=== PATIENT | male | born 1980 | race Caucasian/White ===

== ENCOUNTER 2018-05-02 09:40 | Observation (INO) | payer SELFPAY ==
[~2018-05-02] VITALS: Ht 180.3 cm; Wt 68.0 kg
[2018-05-02 09:45] VITALS: BP 108/76; PULSE 89; RESP 17; TEMP 99.6; O2SAT 98
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
[2018-05-02] MEDS ORDERED: KETOROLAC TROMETHAMINE 30 MG/ML (IVP) VIAL IV PUSH ONE (11:15)
[2018-05-02 12:08] LABS: AUTOMATED NEUTROPHIL # 6.7 TH/MM3 (1.8-7.7); BASOPHIL % 0.4 % (0.0-2.0); EOSINOPHIL % 0.1 % (0.0-4.0); HEMATOCRIT 40.3 % (39.0-51.0); HEMOGLOBIN 13.6 GM/DL (13.0-17.0); LYMPH % 22.1 % (9.0-44.0); LYMPHOCYTE # 2.1 TH/MM3 (1.0-4.8); MEAN CELL VOLUME 90.1 FL (80.0-100.0); MEAN CORPUSCULAR HEMOGLOBIN 30.3 PG (27.0-34.0); MEAN CORPUSCULAR HGB CONC 33.6 % (32.0-36.0); MEAN PLATELET VOLUME 7.9 FL (7.0-11.0); MONO % 7.4 % (0.0-8.0); MONOCYTE # 0.7 TH/MM3 (0-0.9); PLATELET COUNT 217 TH/MM3 (150-450); RED BLOOD COUNT 4.48 MIL/MM3 (4.50-5.90); RED CELL DISTRIBUTION WIDTH 13.4 % (11.6-17.2); WHITE BLOOD COUNT 9.6 TH/MM3 (4.0-11.0)
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
[2018-05-02 12:22] LABS: CALCIUM 8.1 MG/DL (8.5-10.1); CREATININE 0.78 MG/DL (0.60-1.30)
[2018-05-02] MEDS ORDERED: PIPERACIL-TAZO 4.5 GM PREMIX 100 ML IV STA (13:27)
[2018-05-02] MEDS ORDERED: VANCOMYCIN INJ 1,000 MG in SODIUM CHLOR 0.9% 250 ML INJ 250 ML IV STA (13:27)
[2018-05-02] MEDS ORDERED: ACETAMINOPHEN 1000 MG/100 ML 100 ML IV ONE (13:45)
[2018-05-02 14:03] VITALS: BP 110/61; PULSE 55; RESP 14; O2SAT 99
--- NOTE | 2018-05-02 14:08 | PD ---
Data Data Last Documented VS Vital Signs Date Time Temp Pulse Resp B/P (MAP) Pulse Ox O2 Delivery O2 Flow Rate FiO2 05/02/18 14:03 55 14 110/61 (77) 99 Room Air 05/02/18 09:45 99.6 Orders Orders Us Arm Soft Tissue (05/02/18 ) Complete Blood Count With Diff (05/02/18 11:06) Basic Metabolic Panel (Bmp) (05/02/18 11:06) Iv Access Insert/Monitor (05/02/18 11:06) Ketorolac Inj (Toradol Inj) (05/02/18 11:15) Electrocardiogram (05/02/18 13:27) Blood Culture (05/02/18 13:27) Piperacil-Tazo 4.5 Gm Premix (Zosyn 4.5 (05/02/18 13:27) Vancomycin Inj (Vancomycin Inj) (05/02/18 13:27) Acetaminophen 1000 Mg/100 Ml (Ofirmev 10 (05/02/18 13:45) Labs Laboratory Tests Test 05/02/18 11:45 White Blood Count 9.6 TH/MM3 Red Blood Count 4.48 MIL/MM3 Hemoglobin 13.6 GM/DL Hematocrit 40.3 % Mean Corpuscular Volume 90.1 FL Mean Corpuscular Hemoglobin 30.3 PG Mean Corpuscular Hemoglobin Concent 33.6 % Red Cell Distribution Width 13.4 % Platelet Count 217 TH/MM3 Mean Platelet Volume 7.9 FL Neutrophils (%) (Auto) 70.0 % Lymphocytes (%) (Auto) 22.1 % Monocytes (%) (Auto) 7.4 % Eosinophils (%) (Auto) 0.1 % Basophils (%) (Auto) 0.4 % Neutrophils # (Auto) 6.7 TH/MM3 Lymphocytes # (Auto) 2.1 TH/MM3 Monocytes # (Auto) 0.7 TH/MM3 Eosinophils # (Auto) 0.0 TH/MM3 Basophils # (Auto) 0.0 TH/MM3 CBC Comment DIFF FINAL Differential Comment Blood Urea Nitrogen 7 MG/DL Creatinine 0.78 MG/DL Random Glucose 85 MG/DL Calcium Level 8.1 MG/DL Sodium Level 140 MEQ/L Potassium Level 3.9 MEQ/L Chloride Level 105 MEQ/L Carbon Dioxide Level 27.0 MEQ/L Anion Gap 8 MEQ/L Estimat Glomerular Filtration Rate 113 ML/MIN [facility] Supervised Visit with BINH: Yes Narrative Course I, Dr. Cornelius, have reviewed the advance practice practitioner's documentation and am in agreement, met with the patient face to face, made the diagnosis, and the medical decision making was done by me. *My assessment and Findings: Patient has a left shoulder abscess which is deep. He is an IV drug user. He is at risk for endocarditis and likely has bacteremia given this is not an injection site. He will be admitted for IV antibiotics and rule out endocarditis. Blood cultures will be sent Diagnosis Primary Impression: Abscess of left upper extremity Additional Impression: History of intravenous drug abuse Scripts No Active Prescriptions or Reported Meds Portillo Cornelius MD May 02, 2018 14:08
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
[2018-05-02] MEDS ORDERED: ACETAMINOPHEN 325 MG TAB PO PRN (16:00)
[2018-05-02] MEDS ORDERED: NALOXONE HCL 0.4 MG/ML AMP IV PUSH PRN (16:00)
[2018-05-02] MEDS ORDERED: SODIUM CHLORIDE 0.9% FLUSH 10 ML FLUSH IV FLUSH PRN (16:00)
[2018-05-02] MEDS ORDERED: Vancomycin Consult Pharmacy 1 EA OTHER SCH (16:00)
[2018-05-02] MEDS ORDERED: ENOXAPARIN SODIUM 40 MG/0.4 ML SYRINGE SQ SCH (18:00)
[2018-05-02 18:18] VITALS: BP 101/63; PULSE 75; RESP 18; TEMP 98.7; O2SAT 99
[2018-05-02] MEDS ORDERED: LORazepam 2 MG/ML VIAL IV PUSH PRN (19:15)
[2018-05-02] MEDS ORDERED: SODIUM CHLORIDE 0.9% FLUSH 10 ML FLUSH IV FLUSH SCH (21:00)
[2018-05-02] MEDS ORDERED: VANCOMYCIN INJ 750 MG in SODIUM CHLOR 0.9% 250 ML INJ 250 ML IV SCH (23:00)
[2018-05-03] MEDS ORDERED: VANCOMYCIN INJ 1,250 MG in SODIUM CHLOR 0.9% 250 ML INJ 250 ML IV SCH (01:00)
[2018-05-03] MEDS ORDERED: PHARMACY ORDERED LAB ONE (14:45)
--- NOTE | 2018-05-03 15:26 | EKG ---
Date Performed: 05/02/2018 Time Performed: 14:03:55 PTAGE: 37 years EKG: SINUS BRADYCARDIA WITH SINUS ARRHYTHMIA BORDERLINE ECG NO PREVIOUS TRACING DOCTOR: Mahendra Chinchilla Interpretating Date/Time 05/03/2018 15:24:16
[2018-05-04] MEDS ORDERED: PHARMACY ORDERED LAB ONE (00:45)
== END 2018-05-02 19:30 | disposition left against medical advice (07) ==
LOC: NEPC 09:40 → NEDA 14:12 → NEPFCDU 16:26
PROVIDERS: ADMIT Hospitalist; ATTEND Hospitalist
DX: L02.414 Cutaneous abscess of left upper limb (principal); F19.10 Other psychoactive substance abuse, uncomplicated; F41.9 Anxiety disorder, unspecified; F17.210 Nicotine dependence, cigarettes, uncomplicated; F12.90 Cannabis use, unspecified, uncomplicated; R00.1 Bradycardia, unspecified
CPT/HCPCS: 76882; 80048; 85025; 87040; 93005; 96365; 96367; 96368; 96372; 96375; 99285; G0378; J0131; J1650; J1885; J2543; J3370; J7050

== ENCOUNTER 2018-05-02 19:19 | Emergency (ER) | payer SELFPAY ==
[2018-05-02 19:29] VITALS: BP 120/78; PULSE 78; RESP 15; TEMP 99; O2SAT 99
== END 2018-05-02 20:43 | disposition left against medical advice (07) ==
LOC: NED 19:19
DX: L02.91 Cutaneous abscess, unspecified (principal); Z53.21 Procedure and treatment not carried out due to patient leaving prior to being seen by health care provider
CPT/HCPCS: 99281

== ENCOUNTER 2018-05-06 16:34 | Inpatient (IN) | payer SELFPAY ==
[~2018-05-06] VITALS: Ht 180.3 cm; Wt 62.7 kg
[2018-05-06 17:17] VITALS: BP 105/57; PULSE 91; RESP 16; TEMP 99.4; O2SAT 98
--- NOTE | 2018-05-06 22:27 | PD ---
Physical Exam Date Seen by Provider: May 06, 2018 Time Seen by Provider: 22:26 Data Data Last Documented VS Vital Signs Date Time Temp Pulse Resp B/P (MAP) Pulse Ox O2 Delivery O2 Flow Rate FiO2 05/06/18 17:17 99.4 91 16 105/57 (73) 98 Orders Orders Complete Blood Count With Diff (05/06/18 22:18) Comprehensive Metabolic Panel (05/06/18 22:18) Prothrombin Time / Inr (Pt) (05/06/18 22:18) Act Partial Throm Time (Ptt) (05/06/18 22:18) Blood Culture (05/06/18:18) C-Reactive Protein (Crp) (05/06/18:18) Urinalysis - C+S If Indicated (05/06/18:18) Magnesium (Mg) (05/06/18 22:18) Chest, Single Ap (05/06/18 22:18) Drug Screen, Random Urine (05/06/18:18) Alcohol (Ethanol) (05/06/18:18) Lactic Acid Sepsis Protocol (05/06/18:18) Sodium Chlor 0.9% 1000 Ml Inj (Ns 1000 M (05/06/18 22:30) Vancomycin Inj (Vancomycin Inj) (05/06/18 22:30) Piperacil-Tazo 3.375 Gm Premix (Zosyn 3. (05/06/18 22:30) Lidocai-Epi 1%-1:100,000 Inj (Xylocaine- (05/06/18 22:30) Abscess Culture And Gram Stain (05/06/18 22:28) Ketorolac Inj (Toradol Inj) (05/06/18 22:45) MDM Supervised Visit with BINH: No Narrative Course I was asked to evaluate this patient's abscess. The patient was initially seen by Dr. Faulkner. Please see her note for full H& P. On my exam there is an indurated area in the left bicep which measures about 3 cm in diameter. It is fluctuant but there is no pointing or drainage. There is a zone of inflammation around it but no lymphangitis. Abscess I&D was performed. Please see my procedure note for details. Dr. Faulkner retains care of this patient. Please see her note for disposition. Procedures Procedure Narrative INCISION AND DRAINAGE OF ABSCESS: The area was prepped and was sterilely draped. A subcutaneous wheal of 1 % Xylocaine with epi with a total number 4 mL was used to anesthetize the area properly. A number 11scalpel was used to make a 0.5-cm incision across the area of the abscess. The abscess was drained , complex loculations were broken down, and irrigated with normal saline. Cultures were obtained. Patient would not allow me to place packing in the wound. Dressing was applied. Scripts No Active Prescriptions or Reported Meds Lillian Stockton May 06, 2018 22:27
[2018-05-06] MEDS ORDERED: PIPERACIL-TAZO 3.375 GM PREMIX 50 ML IV ONE (22:30)
[2018-05-06] MEDS ORDERED: VANCOMYCIN INJ 1,000 MG in SODIUM CHLOR 0.9% 250 ML INJ 250 ML IV ONE (22:30)
[2018-05-06] MEDS ORDERED: SODIUM CHLOR 0.9% 1000 ML INJ 1,000 ML IV ONE (22:30)
[2018-05-06] MEDS ORDERED: LIDOCAINE 1%/EPINEPHrine 1:100,000 SOLN 20 ML VIAL INFIL ONE (22:30)
[2018-05-06] MEDS ORDERED: KETOROLAC TROMETHAMINE 30 MG/ML (IVP) VIAL IV PUSH ONE (22:45)
--- NOTE | 2018-05-06 22:47 | RADRPT ---
EXAM DATE: 05/06/2018 10:42 PM EDT AGE/SEX: 37 years / Male INDICATIONS: Short of breath. CLINICAL DATA: This is the patient's initial encounter. Patient reports that signs and symptoms have been present for 1 day and indicates a pain score of 0/10. MEDICAL/SURGICAL HISTORY: None. None. COMPARISON: No prior exams available for comparison. FINDINGS: The lungs are clear without infiltrate, nodule, or mass. There is no appreciable pleural effusion fo r technique. Heart and mediastinum are unremarkable. CONCLUSION: No acute cardiopulmonary disease. Electronically signed by: Benny Ramos MD 05/06/2018 10:45 PM EDT
[2018-05-06 22:50] VITALS: BP 115/65; PULSE 87; TEMP 98.9; O2SAT 100
[2018-05-06 23:15] LABS: AUTOMATED NEUTROPHIL # 7.9 TH/MM3 (1.8-7.7); BASOPHIL # 0.1 TH/MM3 (0-0.2); BASOPHIL % 0.6 % (0.0-2.0); HEMOGLOBIN 12.9 GM/DL (13.0-17.0); LYMPH % 21.9 % (9.0-44.0); LYMPHOCYTE # 2.5 TH/MM3 (1.0-4.8); MEAN CELL VOLUME 89.8 FL (80.0-100.0); MEAN CORPUSCULAR HEMOGLOBIN 29.7 PG (27.0-34.0); MEAN CORPUSCULAR HGB CONC 33.1 % (32.0-36.0); MEAN PLATELET VOLUME 7.6 FL (7.0-11.0); MONOCYTE # 0.8 TH/MM3 (0-0.9); NEUT % 70.5 % (16.0-70.0); PLATELET COUNT 237 TH/MM3 (150-450); RED BLOOD COUNT 4.35 MIL/MM3 (4.50-5.90); WHITE BLOOD COUNT 11.2 TH/MM3 (4.0-11.0)
[2018-05-06 23:27] LABS: PROTHROMBIN TIME - PATIENT 9.7 SEC (9.8-11.6)
[2018-05-06 23:38] LABS: ALBUMIN 3.1 GM/DL (3.4-5.0); ALT (GPT) 63 U/L (12-78); AST (GOT) 30 U/L (15-37); BICARBONATE 24.7 MEQ/L (21.0-32.0); BLOOD UREA NITROGEN 7 MG/DL (7-18); CHLORIDE 107 MEQ/L (98-107); CREATININE 0.64 MG/DL (0.60-1.30); GLOMERULAR FILTRATION RATE 142 ML/MIN (>89); GLUCOSE,RANDOM 91 MG/DL (74-106); MAGNESIUM 2.3 MG/DL (1.5-2.5); SODIUM (NA) 140 MEQ/L (136-145)
[2018-05-06 23:41] LABS: ALKALINE PHOSPHATASE 87 U/L (45-117); C-REACTIVE PROTEIN 1.86 MG/DL (0.00-0.30); TOTAL BILIRUBIN ADULT 0.3 MG/DL (0.2-1.0); TOTAL PROTEIN 6.7 GM/DL (6.4-8.2)
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
[2018-05-07 00:17] VITALS: BP 106/65; PULSE 88; RESP 18; TEMP 99; O2SAT 99
[2018-05-07 00:41] LABS: AMORPHOUS SEDIMENT, URINE RARE; BILIRUBIN, URINE NEG (NEG); BLOOD, URINE NEG (NEG); GLUCOSE,URINE NEG (NEG); KETONE, URINE NEG (NEG); NITRITE,URINE NEG (NEG); PH, URINE 8.5 (5.0-8.5); URINE COLOR YELLOW (YELLW/STRAW); URINE LEUKOCYTE ESTERASE NEG (NEG)
[2018-05-07] MEDS ORDERED: SODIUM CHLOR 0.9% 1000 ML INJ 1,000 ML IV SCH (02:05)
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
[2018-05-07] MEDS ORDERED: Vancomycin Consult Pharmacy 1 EA OTHER SCH (02:15)
[2018-05-07] MEDS ORDERED: MAGNESIUM HYDROXIDE SUSP 30 ML CUP PO PRN (02:15)
[2018-05-07] MEDS ORDERED: SODIUM CHLORIDE 0.9% FLUSH 10 ML FLUSH IV FLUSH PRN (02:15)
[2018-05-07] MEDS ORDERED: NALOXONE HCL 0.4 MG/ML AMP IV PUSH PRN (02:15)
[2018-05-07] MEDS ORDERED: ACETAMINOPHEN 325 MG TAB PO PRN (02:15)
[2018-05-07] MEDS ORDERED: ONDANSETRON HCL 4 MG/2 ML VIAL IVP PRN (02:15)
[2018-05-07] MEDS ORDERED: BISACODYL 10 MG SUPP RECTAL PRN (02:15)
[2018-05-07] MEDS ORDERED: LACTULOSE SYRUP 20 GM/30 ML CUP PO PRN (02:15)
[2018-05-07] MEDS ORDERED: SENNOSIDES 8.6 MG TAB PO PRN (02:15)
[2018-05-07 03:57] VITALS: PULSE 75
[2018-05-07 04:00] VITALS: BP 107/59; PULSE 77; RESP 16; TEMP 98.1; O2SAT 99
[2018-05-07] MEDS: MORPHINE SULFATE 4 MG/ML INJ IV PUSH PRN ×2 (04:51→07:58)
[2018-05-07] MEDS ORDERED: PIPERACIL-TAZO 3.375 GM PREMIX 50 ML IV SCH (05:00)
[2018-05-07] MEDS ORDERED: VANCOMYCIN INJ 1,750 MG in SODIUM CHLORID 0.9% 500 ML INJ 500 ML IV SCH (06:00)
[2018-05-07 08:00] VITALS: PULSE 73
[2018-05-07 08:09] VITALS: BP 110/64; PULSE 69; RESP 17; TEMP 98.4; O2SAT 100
[2018-05-07] MEDS ORDERED: SODIUM CHLORIDE 0.9% FLUSH 10 ML FLUSH IV FLUSH SCH (09:00)
[2018-05-07] MEDS ORDERED: DOCUSATE SODIUM 50 MG/SENNA 8.6 MG TAB PO SCH (09:00)
--- NOTE | 2018-05-07 11:55 | PD.AMA ---
Against Medical Advice Note Discharge Disposition: Against Medical Advice Pt Condition on Discharge: Stable AMA Statement Patient Mario Huerta has decided to leave the hospital against medical advice. This patient has the capacity to refuse care and understands the risks of leaving, including permanent disability and/or , and has had an opportunity to ask questions about his condition. The patient has been informed that he may return for care at any time, and follow up has been arranged/advised. Terrie Benavidez MD May 07, 2018 11:55
[2018-05-08] MEDS ORDERED: PHARMACY ORDERED LAB ONE (05:45)
== END 2018-05-07 12:08 | disposition left against medical advice (07) | DRG 603 ==
LOC: NEPE 16:34 → NEDA 05-07 01:22 → N04B 05-07 02:40
PROVIDERS: ADMIT Hospitalist; ATTEND Hospitalist
PROC: 0H9CXZX Drainage of Left Upper Arm Skin, External Approach, Diagnostic (ICD-10-PCS; principal; 2018-05-06)
DX: L02.414 Cutaneous abscess of left upper limb (principal); F11.10 Opioid abuse, uncomplicated; L03.114 Cellulitis of left upper limb; F17.210 Nicotine dependence, cigarettes, uncomplicated
CPT/HCPCS: 10060; 71045; 80053; 80307; 81001; 83605; 83735; 85025; 85610; 85730; 86140; 87040; 87070; 87077; 87186; 87205; 96365; 96368; 96375; J1885; J2270; J2543; J3370; J7030; J7040; J7050